=== PATIENT | male | born 1965 | race Two or more races ===

== ENCOUNTER 2020-07-20 09:39 | Inpatient (IN) | payer MEDICAID, OTHER ==
[~2020-07-20] VITALS: Ht 162.6 cm; Wt 88.2 kg
[2020-07-20] MEDS ORDERED: ACETAMINOPHEN 325 MG TAB PO ONE (10:15)
[2020-07-20] MEDS ORDERED: SODIUM CHLORIDE 0.9% 500 ML IV ONE (10:15)
[2020-07-20 10:34] LABS: Albumin 3.1 g/dL (3.4-5.0); Calcium 8.2 mg/dL (8.5-10.1); Potassium 3.2 mmol/L (3.5-5.1)
[2020-07-20 10:37] LABS: INR 1.26 (0.9-1.15)
[2020-07-20 10:40] LABS: BUN/Creatinine Ratio 9.9; Bilirubin, Total 0.9 mg/dL (0.2-1.0); Total Protein 8.3 g/dL (6.4-8.2)
[2020-07-20 10:45] LABS: Hematocrit 41.6 % (41.0-53.0); Hemoglobin 14.5 g/dL (13.5-17.5); Mean Corpuscular Hemoglobin 28.7 pg (28.0-32.0); Mean Corpuscular Hgb Conc. 34.9 g/dL (32.0-36.0); Mean Corpuscular Volume 82.4 fL (80.0-100.0); Platelet Count (auto) 163 10^3/uL (140-450); Red Blood Cells 5.04 10^6/uL (4.5-5.90); Red Cell Distribution Width 13.6 % (11.8-14.3); White Blood Cell 19.5 10^3/uL (4.4-10.8)
[2020-07-20 12:36] LABS: Band Neutrophils % (manual) 0; Basophils % (manual) 0 (0.0-2.0); Blast Cells 0; Eosinophils % (manual) 0 (0-7); Myelocytes % 0; Promyelocytes % 0; Reactive Lymphocytes 0
[2020-07-20 12:38] LABS: Lymphocytes % (manual) 7 (10.0-50.0); Metamyelocytes % 1; Monocytes % (manual) 3 (0-12)
[2020-07-20] MEDS ORDERED: ZINC SULFATE 220mg CAP or TAB PO ONE (12:45)
[2020-07-20] MEDS ORDERED: DexAMETHasone SOD PHOS 10MG/1ML VIAL INJ IV ONE (12:45)
[2020-07-20] MEDS ORDERED: SODIUM CHLORIDE 0.9% 1,000 ML IVB ONE (12:45)
[2020-07-20] MEDS ORDERED: ASPirin-EC 81 mg tab PO ONE (12:45)
[2020-07-20] MEDS ORDERED: ASCORBIC ACID 500 MG TAB PO ONE (12:45)
[2020-07-20] MEDS ORDERED: AZITHROMYCIN 500MG/ 250ML 250 ML IV ONE (12:45)
[2020-07-20] MEDS ORDERED: POTASSIUM CHL 20 Meq TABLET PO ONE (15:45)
[2020-07-20] MEDS ORDERED: ONDANSETRON HCL 4 MG/2 ML VIAL IV PRN (16:00)
[2020-07-20] MEDS ORDERED: NITROGLYCERIN 0.4 MG SL TAB SL PRN (16:00)
[2020-07-20] MEDS ORDERED: MORPHINE SULF INJ 2 MG/ML SYRINGE 1ML IV PRN (16:00)
[2020-07-20] MEDS: ENOXAPARIN SOD 80 MG/0.8ML SYRINGE SC SCH (22:16)
[2020-07-20] MEDS ORDERED: REMDESIVIR PER PHARMACY 0 ML IV SCH (23:00)
[2020-07-21 07:40] LABS: Basophils # (auto) 0 10 ^3/uL (0-0.2); Basophils % (auto) 0.2 % (0.0-2.0); Eosinophils # (auto) 0 10 ^3/uL (0-0.8); Hematocrit 37.9 % (41.0-53.0); Hemoglobin 12.8 g/dL (13.5-17.5); Lymphocytes # (auto) 1.3 10 ^3/uL (0.4-5.4); Mean Corpuscular Hemoglobin 28.3 pg (28.0-32.0); Mean Corpuscular Hgb Conc. 33.8 g/dL (32.0-36.0); Mean Corpuscular Volume 83.6 fL (80.0-100.0); Monocytes # (auto) 0.9 10 ^3/uL (0-1.3); Monocytes % (auto) 8.2 % (0.0-12.0); Neutrophils # (auto) 8.6 10 ^3/uL (1.6-8.6); Neutrophils % (auto) 79.6 % (37.0-80.0); Nucleated Red Blood Cells % 1.4 %; Platelet Count (auto) 182 10^3/uL (140-450); Red Blood Cells 4.53 10^6/uL (4.5-5.90); Red Cell Distribution Width 13.6 % (11.8-14.3); White Blood Cell 10.8 10^3/uL (4.4-10.8)
[2020-07-21 07:44] LABS: Albumin 2.7 g/dL (3.4-5.0); Calcium 8.5 mg/dL (8.5-10.1); Magnesium 2.4 mg/dL (1.6-2.6); Potassium 3.9 mmol/L (3.5-5.1)
[2020-07-21 07:53] LABS: BUN/Creatinine Ratio 23.6; Bilirubin, Total 0.6 mg/dL (0.2-1.0); Total Protein 7.6 g/dL (6.4-8.2)
[2020-07-21] MEDS: cefTRIAXone 1GM/50ML D5W 50 ML IV SCH (09:00)
[2020-07-21] MEDS ORDERED: ENOXAPARIN SOD 80 MG/0.8ML SYRINGE SC SCH (10:00)
[2020-07-21] MEDS: ASPirin 81 mg TAB PO SCH (10:37)
[2020-07-21] MEDS: AZITHROMYCIN 500MG/ 250ML 250 ML IV SCH (10:37)
[2020-07-21] MEDS: ENOXAPARIN SOD 80 MG/0.8ML SYRINGE SC SCH ×2 (10:38→23:01)
[2020-07-21] MEDS: ATORVASTATIN 20 MG TAB PO SCH (10:38)
[2020-07-21] MEDS: METHADONE HCL 10 MG TAB PO SCH (12:42)
[2020-07-21] MEDS ORDERED: REMDESIVIR 200 MG in NS 210ml LOADING DOSE ADULT IV ONE (16:00)
[2020-07-22 04:59] VITALS: BP 146/90
[2020-07-22 05:05] VITALS: BP 146/90
[2020-07-22] MEDS ORDERED: METF-370 PO (05:39)
[2020-07-22] MEDS ORDERED: METH10T PO (05:39)
[2020-07-22 07:33] LABS: Basophils # (auto) 0.1 10 ^3/uL (0-0.2); Basophils % (auto) 0.4 % (0.0-2.0); Eosinophils # (auto) 0 10 ^3/uL (0-0.8); Eosinophils % (auto) 0.3 % (0.0-7.0); Hematocrit 40.2 % (41.0-53.0); Hemoglobin 13.6 g/dL (13.5-17.5); Lymphocytes # (auto) 2.4 10 ^3/uL (0.4-5.4); Lymphocytes % (auto) 14.7 % (10.0-50.0); Mean Corpuscular Hemoglobin 28.3 pg (28.0-32.0); Mean Corpuscular Hgb Conc. 33.9 g/dL (32.0-36.0); Mean Corpuscular Volume 83.6 fL (80.0-100.0); Monocytes # (auto) 1.2 10 ^3/uL (0-1.3); Monocytes % (auto) 7.4 % (0.0-12.0); Neutrophils # (auto) 12.5 10 ^3/uL (1.6-8.6); Neutrophils % (auto) 77.2 % (37.0-80.0); Nucleated Red Blood Cells % 0.2 %; Platelet Count (auto) 224 10^3/uL (140-450); Red Blood Cells 4.81 10^6/uL (4.5-5.90); Red Cell Distribution Width 13.7 % (11.8-14.3); White Blood Cell 16.2 10^3/uL (4.4-10.8)
[2020-07-22 08:00] VITALS: BP 128/81
[2020-07-22 08:06] LABS: BUN/Creatinine Ratio 23.6; Calcium 8.8 mg/dL (8.5-10.1)
[2020-07-22] MEDS: cefTRIAXone 1GM/50ML D5W 50 ML IV SCH (08:20)
[2020-07-22] MEDS: ASPirin 81 mg TAB PO SCH (09:34)
[2020-07-22] MEDS: METHADONE HCL 10 MG TAB PO SCH (09:34)
[2020-07-22] MEDS: ENOXAPARIN SOD 80 MG/0.8ML SYRINGE SC SCH ×2 (09:34→22:17)
[2020-07-22] MEDS: ATORVASTATIN 20 MG TAB PO SCH (09:34)
[2020-07-22] MEDS: AZITHROMYCIN 500MG/ 250ML 250 ML IV SCH (09:35)
[2020-07-22] MEDS ORDERED: METHADONE HCL 10 MG TAB PO SCH (10:00)
[2020-07-22] MEDS: DexAMETHasone SOD PHOS 10MG/1ML VIAL INJ IV SCH (11:51)
[2020-07-22] MEDS: REMDESIVIR 100 MG in SODIUM CHL 0.9% 250 ML IV SCH (15:45)
[2020-07-22 16:08] VITALS: BP 138/95
[2020-07-23] VITALS: BP 116/74
[2020-07-23 05:59] LABS: Basophils # (auto) 0 10 ^3/uL (0-0.2); Basophils % (auto) 0.4 % (0.0-2.0); Eosinophils # (auto) 0 10 ^3/uL (0-0.8); Eosinophils % (auto) 0.1 % (0.0-7.0); Hemoglobin 13.6 g/dL (13.5-17.5); Lymphocytes # (auto) 1.2 10 ^3/uL (0.4-5.4); Lymphocytes % (auto) 11.5 % (10.0-50.0); Mean Corpuscular Hemoglobin 28.5 pg (28.0-32.0); Mean Corpuscular Hgb Conc. 34.1 g/dL (32.0-36.0); Mean Corpuscular Volume 83.6 fL (80.0-100.0); Monocytes # (auto) 0.8 10 ^3/uL (0-1.3); Monocytes % (auto) 7.6 % (0.0-12.0); Neutrophils # (auto) 8.4 10 ^3/uL (1.6-8.6); Neutrophils % (auto) 80.4 % (37.0-80.0); Nucleated Red Blood Cells % 0.2 %; Platelet Count (auto) 230 10^3/uL (140-450); Red Blood Cells 4.79 10^6/uL (4.5-5.90); Red Cell Distribution Width 13.9 % (11.8-14.3); White Blood Cell 10.5 10^3/uL (4.4-10.8)
[2020-07-23 06:19] LABS: Calcium 8.8 mg/dL (8.5-10.1); Magnesium 2.4 mg/dL (1.6-2.6); Potassium 4.1 mmol/L (3.5-5.1)
[2020-07-23 06:28] LABS: BUN/Creatinine Ratio 26.3; CRP High Sensitivity 8.8 mg/dL (< 0.3)
[2020-07-23 08:00] VITALS: BP 120/83
[2020-07-23] MEDS: cefTRIAXone 1GM/50ML D5W 50 ML IV SCH (08:52)
[2020-07-23] MEDS: AZITHROMYCIN 500MG/ 250ML 250 ML IV SCH (10:13)
[2020-07-23] MEDS: ENOXAPARIN SOD 80 MG/0.8ML SYRINGE SC SCH ×2 (10:14→22:05)
[2020-07-23] MEDS: ATORVASTATIN 20 MG TAB PO SCH (10:14)
[2020-07-23] MEDS: METHADONE HCL 10 MG TAB PO SCH (10:15)
[2020-07-23] MEDS: ASPirin 81 mg TAB PO SCH (10:16)
[2020-07-23] MEDS: DexAMETHasone SOD PHOS 10MG/1ML VIAL INJ IV SCH (10:16)
[2020-07-23] MEDS: REMDESIVIR 100 MG in SODIUM CHL 0.9% 250 ML IV SCH (15:00)
[2020-07-23] MEDS: MORPHINE SULF INJ 2 MG/ML SYRINGE 1ML IV PRN (15:54)
[2020-07-23] MEDS ORDERED: FUROSEMIDE 40 MG/4 ML VIAL IV ONE (16:15)
[2020-07-23 16:29] VITALS: BP 126/75
[2020-07-24] VITALS: BP 110/72
[2020-07-24 08:00] VITALS: BP 120/73
[2020-07-24] MEDS: cefTRIAXone 1GM/50ML D5W 50 ML IV SCH (09:24)
[2020-07-24] MEDS: DexAMETHasone SOD PHOS 10MG/1ML VIAL INJ IV SCH (09:47)
[2020-07-24] MEDS: ENOXAPARIN SOD 80 MG/0.8ML SYRINGE SC SCH ×2 (09:47→21:38)
[2020-07-24] MEDS: ATORVASTATIN 20 MG TAB PO SCH (09:47)
[2020-07-24] MEDS: ASPirin 81 mg TAB PO SCH (09:47)
[2020-07-24] MEDS: METHADONE HCL 10 MG TAB PO SCH (09:48)
[2020-07-24 10:06] LABS: Albumin 3.2 g/dL (3.4-5.0); Calcium 9.1 mg/dL (8.5-10.1); Potassium 3.9 mmol/L (3.5-5.1)
[2020-07-24] MEDS: AZITHROMYCIN 500MG/ 250ML 250 ML IV SCH (10:20)
[2020-07-24 10:33] LABS: BUN/Creatinine Ratio 22.2; Bilirubin, Total 0.6 mg/dL (0.2-1.0); Total Protein 8.7 g/dL (6.4-8.2)
[2020-07-24] MEDS: MORPHINE SULF INJ 2 MG/ML SYRINGE 1ML IV PRN (15:16)
[2020-07-24] MEDS: REMDESIVIR 100 MG in SODIUM CHL 0.9% 250 ML IV SCH (15:38)
[2020-07-24 16:00] VITALS: BP 122/83
[2020-07-24] MEDS ORDERED: diphenhdrAMINE HCL 25 MG CAP PO PRN (20:00)
[2020-07-25] VITALS: BP 137/78
[2020-07-25 08:00] VITALS: BP 132/86
[2020-07-25 08:05] LABS: Potassium 4.5 mmol/L (3.5-5.1)
[2020-07-25 08:13] LABS: Albumin 3.1 g/dL (3.4-5.0); BUN/Creatinine Ratio 27.3; Bilirubin, Total 0.6 mg/dL (0.2-1.0); Calcium 9.2 mg/dL (8.5-10.1); Total Protein 8.1 g/dL (6.4-8.2)
[2020-07-25] MEDS: cefTRIAXone 1GM/50ML D5W 50 ML IV SCH (08:45)
[2020-07-25] MEDS ORDERED: FUROSEMIDE 40 MG/4 ML VIAL IV ONE (09:00)
[2020-07-25] MEDS: DexAMETHasone SOD PHOS 10MG/1ML VIAL INJ IV SCH (09:27)
[2020-07-25] MEDS: ASPirin 81 mg TAB PO SCH (09:27)
[2020-07-25] MEDS: ATORVASTATIN 20 MG TAB PO SCH (09:27)
[2020-07-25] MEDS: AZITHROMYCIN 500MG/ 250ML 250 ML IV SCH (09:28)
[2020-07-25] MEDS: ENOXAPARIN SOD 80 MG/0.8ML SYRINGE SC SCH ×2 (09:28→21:37)
[2020-07-25] MEDS: METHADONE HCL 10 MG TAB PO SCH (09:31)
[2020-07-25] MEDS: REMDESIVIR 100 MG in SODIUM CHL 0.9% 250 ML IV SCH (15:23)
[2020-07-25 16:00] VITALS: BP 118/70
[2020-07-25] MEDS: MORPHINE SULF INJ 2 MG/ML SYRINGE 1ML IV PRN (21:47)
[2020-07-26] VITALS: BP 122/75
[2020-07-26 07:47] VITALS: BP 135/85
[2020-07-26] MEDS: DexAMETHasone SOD PHOS 10MG/1ML VIAL INJ IV SCH (10:51)
[2020-07-26] MEDS: cefTRIAXone 1GM/50ML D5W 50 ML IV SCH (10:51)
[2020-07-26] MEDS: ATORVASTATIN 20 MG TAB PO SCH (10:52)
[2020-07-26] MEDS: ASPirin 81 mg TAB PO SCH (10:52)
[2020-07-26] MEDS: ENOXAPARIN SOD 80 MG/0.8ML SYRINGE SC SCH ×2 (10:54→21:52)
[2020-07-26] MEDS: METHADONE HCL 10 MG TAB PO SCH (10:54)
[2020-07-26 11:04] LABS: Basophils # (auto) 0 10 ^3/uL (0-0.2); Basophils % (auto) 0.2 % (0.0-2.0); Eosinophils # (auto) 0.1 10 ^3/uL (0-0.8); Eosinophils % (auto) 0.5 % (0.0-7.0); Hematocrit 45.8 % (41.0-53.0); Hemoglobin 15.7 g/dL (13.5-17.5); Lymphocytes # (auto) 2.7 10 ^3/uL (0.4-5.4); Lymphocytes % (auto) 16.9 % (10.0-50.0); Mean Corpuscular Hemoglobin 28.9 pg (28.0-32.0); Mean Corpuscular Hgb Conc. 34.3 g/dL (32.0-36.0); Mean Corpuscular Volume 84.2 fL (80.0-100.0); Monocytes # (auto) 1.9 10 ^3/uL (0-1.3); Monocytes % (auto) 11.5 % (0.0-12.0); Neutrophils # (auto) 11.4 10 ^3/uL (1.6-8.6); Neutrophils % (auto) 70.9 % (37.0-80.0); Nucleated Red Blood Cells % 0.1 %; Platelet Count (auto) 434 10^3/uL (140-450); Red Blood Cells 5.44 10^6/uL (4.5-5.90); Red Cell Distribution Width 14.2 % (11.8-14.3); White Blood Cell 16.2 10^3/uL (4.4-10.8)
[2020-07-26 11:11] LABS: Calcium 9.2 mg/dL (8.5-10.1); Magnesium 2.1 mg/dL (1.6-2.6); Potassium 4.2 mmol/L (3.5-5.1)
[2020-07-26] MEDS: AZITHROMYCIN 500MG/ 250ML 250 ML IV SCH (11:58)
[2020-07-26 15:22] LABS: Basophils # (auto) 0 10 ^3/uL (0-0.2); Eosinophils # (auto) 0 10 ^3/uL (0-0.8); Eosinophils % (auto) 0.1 % (0.0-7.0); Hematocrit 42.3 % (41.0-53.0); Hemoglobin 14.3 g/dL (13.5-17.5); Lymphocytes % (auto) 5.6 % (10.0-50.0); Mean Corpuscular Hemoglobin 28.2 pg (28.0-32.0); Mean Corpuscular Hgb Conc. 33.9 g/dL (32.0-36.0); Mean Corpuscular Volume 83.4 fL (80.0-100.0); Monocytes # (auto) 0.6 10 ^3/uL (0-1.3); Monocytes % (auto) 3.6 % (0.0-12.0); Neutrophils # (auto) 16.5 10 ^3/uL (1.6-8.6); Neutrophils % (auto) 90.7 % (37.0-80.0); Platelet Count (auto) 374 10^3/uL (140-450); Red Blood Cells 5.07 10^6/uL (4.5-5.90); Red Cell Distribution Width 13.8 % (11.8-14.3); White Blood Cell 18.2 10^3/uL (4.4-10.8)
[2020-07-26 16:00] VITALS: BP 136/93
[2020-07-26 16:59] LABS: Potassium 5.1 mmol/L (3.5-5.1)
[2020-07-26 17:07] LABS: BUN/Creatinine Ratio 22.7; Calcium 8.9 mg/dL (8.5-10.1); Magnesium 2.1 mg/dL (1.6-2.6)
[2020-07-26] MEDS ORDERED: INSULIN LANTUS (GLARGINE) 1 /0.01ml (100units/ml) SC ONE (17:45)
[2020-07-26] MEDS: MORPHINE SULF INJ 2 MG/ML SYRINGE 1ML IV PRN (20:31)
[2020-07-27] VITALS: BP 118/81
[2020-07-27 08:00] VITALS: BP 107/74
[2020-07-27] MEDS: DexAMETHasone SOD PHOS 10MG/1ML VIAL INJ IV SCH (09:43)
[2020-07-27] MEDS: cefTRIAXone 1GM/50ML D5W 50 ML IV SCH (09:43)
[2020-07-27] MEDS: FUROSEMIDE 20 MG/2 ML VIAL IV SCH (09:43)
[2020-07-27] MEDS: ATORVASTATIN 20 MG TAB PO SCH (09:45)
[2020-07-27] MEDS: METHADONE HCL 10 MG TAB PO SCH (09:45)
[2020-07-27] MEDS: ASPirin 81 mg TAB PO SCH (09:45)
[2020-07-27] MEDS ORDERED: INSULIN LANTUS (GLARGINE) 1 /0.01ml (100units/ml) SC SCH (10:00)
[2020-07-27] MEDS: ENOXAPARIN SOD 80 MG/0.8ML SYRINGE SC SCH ×2 (11:05→22:11)
[2020-07-27] MEDS: AZITHROMYCIN 500MG/ 250ML 250 ML IV SCH (11:05)
[2020-07-27] MEDS ORDERED: DEXTROSE (50%) 50ML SYRG IV PRN (11:15)
[2020-07-27] MEDS: InsuLIN REG 1unit/0.01ml Soln (100units/ml) SC SCH ×3 (13:14→22:13)
[2020-07-27] MEDS: ACCU-CHEK COMFORT CURVE STRIP VI SCH ×3 (13:15→22:12)
[2020-07-27 16:00] VITALS: BP_SYST 113; BP_SYST 118; BP_DIAS 63; BP_DIAS 75
[2020-07-27] MEDS ORDERED: ONDANSETRON HCL 4 MG/2 ML VIAL IV PRN (18:00)
[2020-07-27] MEDS ORDERED: MORPHINE SULF INJ 2 MG/ML SYRINGE 1ML IV PRN (18:00)
[2020-07-27 19:24] LABS: Calcium 8.7 mg/dL (8.5-10.1); Potassium 4.5 mmol/L (3.5-5.1)
[2020-07-27] MEDS: INSULIN LANTUS (GLARGINE) 1 /0.01ml (100units/ml) SC SCH (22:12)
[2020-07-27] MEDS: HYDROcodone-ACET 5/325MG TAB PO PRN (22:13)
[2020-07-28] VITALS: BP 129/75
[2020-07-28] MEDS: ACCU-CHEK COMFORT CURVE STRIP VI SCH ×4 (06:42→22:21)
[2020-07-28] MEDS: InsuLIN REG 1unit/0.01ml Soln (100units/ml) SC SCH ×4 (06:44→22:22)
[2020-07-28 08:00] VITALS: BP 113/79
[2020-07-28 08:56] LABS: Basophils # (auto) 0 10 ^3/uL (0-0.2); Basophils % (auto) 0.3 % (0.0-2.0); Eosinophils # (auto) 0 10 ^3/uL (0-0.8); Eosinophils % (auto) 0.3 % (0.0-7.0); Hematocrit 42.1 % (41.0-53.0); Hemoglobin 14.5 g/dL (13.5-17.5); Lymphocytes # (auto) 2.4 10 ^3/uL (0.4-5.4); Lymphocytes % (auto) 18.3 % (10.0-50.0); Mean Corpuscular Hemoglobin 28.8 pg (28.0-32.0); Mean Corpuscular Hgb Conc. 34.5 g/dL (32.0-36.0); Mean Corpuscular Volume 83.4 fL (80.0-100.0); Monocytes # (auto) 1.7 10 ^3/uL (0-1.3); Neutrophils # (auto) 8.9 10 ^3/uL (1.6-8.6); Neutrophils % (auto) 68.1 % (37.0-80.0); Nucleated Red Blood Cells % 0.1 %; Platelet Count (auto) 427 10^3/uL (140-450); Red Blood Cells 5.05 10^6/uL (4.5-5.90); Red Cell Distribution Width 13.9 % (11.8-14.3); White Blood Cell 13.1 10^3/uL (4.4-10.8)
[2020-07-28 09:13] LABS: Magnesium 2.2 mg/dL (1.6-2.6)
[2020-07-28] MEDS: FUROSEMIDE 20 MG/2 ML VIAL IV SCH (09:33)
[2020-07-28] MEDS: ASPirin 81 mg TAB PO SCH (09:33)
[2020-07-28] MEDS: DexAMETHasone SOD PHOS 10MG/1ML VIAL INJ IV SCH (09:33)
[2020-07-28] MEDS: cefTRIAXone 1GM/50ML D5W 50 ML IV SCH (09:33)
[2020-07-28] MEDS: ATORVASTATIN 20 MG TAB PO SCH (09:34)
[2020-07-28] MEDS: METHADONE HCL 10 MG TAB PO SCH (09:34)
[2020-07-28] MEDS: ENOXAPARIN SOD 80 MG/0.8ML SYRINGE SC SCH ×2 (09:50→22:21)
[2020-07-28] MEDS: AZITHROMYCIN 500MG/ 250ML 250 ML IV SCH (10:49)
[2020-07-28] MEDS: INSULIN LANTUS (GLARGINE) 1 /0.01ml (100units/ml) SC SCH ×2 (10:49→22:21)
[2020-07-28 16:12] VITALS: BP 106/74
[2020-07-28] MEDS: HYDROcodone-ACET 5/325MG TAB PO PRN (20:14)
[2020-07-28 23:49] VITALS: BP 130/69
[2020-07-29 05:46] VITALS: BP 117/70
[2020-07-29] MEDS: InsuLIN REG 1unit/0.01ml Soln (100units/ml) SC SCH ×4 (06:38→21:58)
[2020-07-29] MEDS: ACCU-CHEK COMFORT CURVE STRIP VI SCH ×4 (06:38→21:55)
[2020-07-29 08:00] VITALS: BP 130/83
[2020-07-29] MEDS: cefTRIAXone 1GM/50ML D5W 50 ML IV SCH (09:27)
[2020-07-29] MEDS: DexAMETHasone SOD PHOS 10MG/1ML VIAL INJ IV SCH (09:27)
[2020-07-29] MEDS: METHADONE HCL 10 MG TAB PO SCH (09:28)
[2020-07-29] MEDS: ASPirin 81 mg TAB PO SCH (09:28)
[2020-07-29] MEDS: FUROSEMIDE 20 MG/2 ML VIAL IV SCH (09:28)
[2020-07-29] MEDS: ENOXAPARIN SOD 80 MG/0.8ML SYRINGE SC SCH ×2 (09:28→21:55)
[2020-07-29] MEDS: ATORVASTATIN 20 MG TAB PO SCH (09:28)
[2020-07-29] MEDS: INSULIN LANTUS (GLARGINE) 1 /0.01ml (100units/ml) SC SCH ×2 (09:50→21:57)
[2020-07-29] MEDS: AZITHROMYCIN 500MG/ 250ML 250 ML IV SCH (10:30)
[2020-07-29 15:36] VITALS: BP 107/81
[2020-07-29] MEDS: HYDROcodone-ACET 5/325MG TAB PO PRN (20:31)
[2020-07-29 23:19] VITALS: BP 110/77
[2020-07-30] VITALS: BP 110/77
[2020-07-30 05:45] VITALS: BP 124/76
[2020-07-30] MEDS: ACCU-CHEK COMFORT CURVE STRIP VI SCH ×4 (06:30→22:18)
[2020-07-30] MEDS: InsuLIN REG 1unit/0.01ml Soln (100units/ml) SC SCH ×4 (06:31→22:20)
[2020-07-30 08:00] VITALS: BP 120/82
[2020-07-30] MEDS: FUROSEMIDE 20 MG/2 ML VIAL IV SCH (10:00)
[2020-07-30] MEDS: AZITHROMYCIN 500MG/ 250ML 250 ML IV SCH (10:16)
[2020-07-30] MEDS: cefTRIAXone 1GM/50ML D5W 50 ML IV SCH (10:16)
[2020-07-30] MEDS: ENOXAPARIN SOD 80 MG/0.8ML SYRINGE SC SCH ×2 (10:17→22:19)
[2020-07-30] MEDS: ASPirin 81 mg TAB PO SCH (10:17)
[2020-07-30] MEDS: DexAMETHasone SOD PHOS 10MG/1ML VIAL INJ IV SCH (10:17)
[2020-07-30] MEDS: METHADONE HCL 10 MG TAB PO SCH (10:17)
[2020-07-30] MEDS: ATORVASTATIN 20 MG TAB PO SCH (10:17)
[2020-07-30] MEDS: INSULIN LANTUS (GLARGINE) 1 /0.01ml (100units/ml) SC SCH ×2 (10:19→22:20)
[2020-07-30 17:44] VITALS: BP 118/80
[2020-07-30] MEDS: HYDROcodone-ACET 5/325MG TAB PO PRN (20:55)
[2020-07-31] VITALS: BP 141/89
[2020-07-31] MEDS: ACCU-CHEK COMFORT CURVE STRIP VI SCH ×4 (06:37→22:01)
[2020-07-31] MEDS: InsuLIN REG 1unit/0.01ml Soln (100units/ml) SC SCH ×4 (06:40→22:10)
[2020-07-31 08:00] VITALS: BP 102/67
[2020-07-31 08:00] LABS: Potassium 3.7 mmol/L (3.5-5.1)
[2020-07-31 08:04] LABS: Basophils # (auto) 0.1 10 ^3/uL (0-0.2); Basophils % (auto) 0.7 % (0.0-2.0); Calcium 8.8 mg/dL (8.5-10.1); Eosinophils # (auto) 0 10 ^3/uL (0-0.8); Eosinophils % (auto) 0.3 % (0.0-7.0); Hematocrit 42.6 % (41.0-53.0); Hemoglobin 14.2 g/dL (13.5-17.5); Lymphocytes # (auto) 2.8 10 ^3/uL (0.4-5.4); Lymphocytes % (auto) 19.9 % (10.0-50.0); Magnesium 2.2 mg/dL (1.6-2.6); Mean Corpuscular Hgb Conc. 33.5 g/dL (32.0-36.0); Mean Corpuscular Volume 83.6 fL (80.0-100.0); Monocytes # (auto) 1.7 10 ^3/uL (0-1.3); Monocytes % (auto) 12.2 % (0.0-12.0); Neutrophils # (auto) 9.4 10 ^3/uL (1.6-8.6); Neutrophils % (auto) 66.9 % (37.0-80.0); Nucleated Red Blood Cells % 0.3 %; Platelet Count (auto) 369 10^3/uL (140-450); Red Blood Cells 5.09 10^6/uL (4.5-5.90)
[2020-07-31] MEDS: DexAMETHasone SOD PHOS 10MG/1ML VIAL INJ IV SCH (09:57)
[2020-07-31] MEDS: cefTRIAXone 1GM/50ML D5W 50 ML IV SCH (09:57)
[2020-07-31] MEDS: FUROSEMIDE 20 MG/2 ML VIAL IV SCH (09:58)
[2020-07-31] MEDS: ASPirin 81 mg TAB PO SCH (09:58)
[2020-07-31] MEDS: ATORVASTATIN 20 MG TAB PO SCH (09:58)
[2020-07-31] MEDS: METHADONE HCL 10 MG TAB PO SCH (09:59)
[2020-07-31] MEDS: ENOXAPARIN SOD 80 MG/0.8ML SYRINGE SC SCH ×2 (10:00→22:08)
[2020-07-31] MEDS: INSULIN LANTUS (GLARGINE) 1 /0.01ml (100units/ml) SC SCH ×2 (10:38→22:09)
[2020-07-31] MEDS: AZITHROMYCIN 500MG/ 250ML 250 ML IV SCH (11:25)
[2020-07-31 16:00] VITALS: BP 111/79
[2020-07-31] MEDS: HYDROcodone-ACET 5/325MG TAB PO PRN (20:17)
[2020-08-01] VITALS: BP 137/82
[2020-08-01] MEDS: InsuLIN REG 1unit/0.01ml Soln (100units/ml) SC SCH ×4 (05:35→21:27)
[2020-08-01] MEDS: ACCU-CHEK COMFORT CURVE STRIP VI SCH ×4 (05:35→21:25)
[2020-08-01 08:00] VITALS: BP 97/66
[2020-08-01] MEDS: cefTRIAXone 1GM/50ML D5W 50 ML IV SCH (10:18)
[2020-08-01] MEDS: DexAMETHasone SOD PHOS 10MG/1ML VIAL INJ IV SCH (10:18)
[2020-08-01] MEDS: FUROSEMIDE 20 MG/2 ML VIAL IV SCH (10:19)
[2020-08-01] MEDS: ASPirin 81 mg TAB PO SCH (10:19)
[2020-08-01] MEDS: METHADONE HCL 10 MG TAB PO SCH (10:19)
[2020-08-01] MEDS: ATORVASTATIN 20 MG TAB PO SCH (10:19)
[2020-08-01] MEDS: AZITHROMYCIN 500MG/ 250ML 250 ML IV SCH (10:19)
[2020-08-01] MEDS: INSULIN LANTUS (GLARGINE) 1 /0.01ml (100units/ml) SC SCH ×2 (10:49→21:26)
[2020-08-01 16:00] VITALS: BP 113/65
[2020-08-01] MEDS: HYDROcodone-ACET 5/325MG TAB PO PRN (21:30)
[2020-08-02] VITALS: BP 128/87
[2020-08-02] MEDS: ACCU-CHEK COMFORT CURVE STRIP VI SCH ×4 (06:28→22:00)
[2020-08-02] MEDS: InsuLIN REG 1unit/0.01ml Soln (100units/ml) SC SCH ×4 (06:35→22:38)
[2020-08-02 08:00] VITALS: BP 134/85
[2020-08-02] MEDS: FUROSEMIDE 20 MG/2 ML VIAL IV SCH (09:50)
[2020-08-02] MEDS: DexAMETHasone SOD PHOS 10MG/1ML VIAL INJ IV SCH (09:50)
[2020-08-02] MEDS: ASPirin 81 mg TAB PO SCH (09:51)
[2020-08-02] MEDS: ATORVASTATIN 20 MG TAB PO SCH (09:51)
[2020-08-02] MEDS: INSULIN LANTUS (GLARGINE) 1 /0.01ml (100units/ml) SC SCH ×2 (10:06→22:39)
[2020-08-02] MEDS: METHADONE HCL 10 MG TAB PO SCH (11:34)
[2020-08-02 14:50] LABS: Potassium 4.3 mmol/L (3.5-5.1)
[2020-08-02 14:55] LABS: Calcium 9.5 mg/dL (8.5-10.1)
[2020-08-02 15:56] VITALS: BP 118/79
[2020-08-02] MEDS: HYDROcodone-ACET 5/325MG TAB PO PRN (20:29)
[2020-08-03] VITALS: BP 153/77
[2020-08-03] MEDS: ACCU-CHEK COMFORT CURVE STRIP VI SCH ×4 (06:26→21:37)
[2020-08-03] MEDS: InsuLIN REG 1unit/0.01ml Soln (100units/ml) SC SCH ×4 (06:30→21:24)
[2020-08-03 06:31] LABS: Basophils # (auto) 0.1 10 ^3/uL (0-0.2); Basophils % (auto) 0.7 % (0.0-2.0); Eosinophils # (auto) 0.1 10 ^3/uL (0-0.8); Eosinophils % (auto) 0.3 % (0.0-7.0); Hematocrit 41.3 % (41.0-53.0); Hemoglobin 14.1 g/dL (13.5-17.5); Lymphocytes # (auto) 3.5 10 ^3/uL (0.4-5.4); Lymphocytes % (auto) 16.2 % (10.0-50.0); Mean Corpuscular Hemoglobin 28.6 pg (28.0-32.0); Mean Corpuscular Hgb Conc. 34.1 g/dL (32.0-36.0); Mean Corpuscular Volume 83.8 fL (80.0-100.0); Monocytes # (auto) 1.7 10 ^3/uL (0-1.3); Monocytes % (auto) 7.9 % (0.0-12.0); Neutrophils # (auto) 16.4 10 ^3/uL (1.6-8.6); Neutrophils % (auto) 74.9 % (37.0-80.0); Nucleated Red Blood Cells % 0.1 %; Platelet Count (auto) 307 10^3/uL (140-450); Red Blood Cells 4.92 10^6/uL (4.5-5.90); Red Cell Distribution Width 14.2 % (11.8-14.3); White Blood Cell 21.9 10^3/uL (4.4-10.8)
[2020-08-03 06:43] LABS: Potassium 4.3 mmol/L (3.5-5.1)
[2020-08-03 06:47] LABS: BUN/Creatinine Ratio 27.4; CRP High Sensitivity 0.09 mg/dL (< 0.3); Calcium 8.8 mg/dL (8.5-10.1)
[2020-08-03 08:05] VITALS: BP 134/77
[2020-08-03] MEDS: DexAMETHasone SOD PHOS 10MG/1ML VIAL INJ IV SCH (09:20)
[2020-08-03] MEDS: METHADONE HCL 10 MG TAB PO SCH (09:21)
[2020-08-03] MEDS: ATORVASTATIN 20 MG TAB PO SCH (09:21)
[2020-08-03] MEDS: ASPirin 81 mg TAB PO SCH (09:21)
[2020-08-03] MEDS: FUROSEMIDE 20 MG/2 ML VIAL IV SCH (09:21)
[2020-08-03] MEDS: INSULIN LANTUS (GLARGINE) 1 /0.01ml (100units/ml) SC SCH ×2 (09:38→21:35)
[2020-08-03 16:00] VITALS: BP 120/72
[2020-08-04] VITALS: BP 125/82
[2020-08-04] MEDS: ACCU-CHEK COMFORT CURVE STRIP VI SCH ×4 (06:18→22:00)
[2020-08-04] MEDS: InsuLIN REG 1unit/0.01ml Soln (100units/ml) SC SCH ×4 (06:22→22:00)
[2020-08-04 08:00] VITALS: BP 114/82
[2020-08-04] MEDS: ASPirin 81 mg TAB PO SCH (08:40)
[2020-08-04] MEDS: ATORVASTATIN 20 MG TAB PO SCH (08:40)
[2020-08-04] MEDS: METHADONE HCL 10 MG TAB PO SCH (08:41)
[2020-08-04] MEDS: INSULIN LANTUS (GLARGINE) 1 /0.01ml (100units/ml) SC SCH ×2 (08:42→22:00)
[2020-08-04] MEDS ORDERED: FUROSEMIDE 20 MG/2 ML VIAL IV SCH (10:00)
[2020-08-04 16:00] VITALS: BP 149/72
[2020-08-04 16:06] LABS: Potassium 4.1 mmol/L (3.5-5.1)
[2020-08-04 16:08] LABS: BUN/Creatinine Ratio 22.6
[2020-08-05] VITALS: BP 127/80
[2020-08-05] MEDS: InsuLIN REG 1unit/0.01ml Soln (100units/ml) SC SCH ×4 (06:58→21:40)
[2020-08-05] MEDS: ACCU-CHEK COMFORT CURVE STRIP VI SCH ×4 (06:58→21:41)
[2020-08-05 07:16] LABS: Basophils # (auto) 0.2 10 ^3/uL (0-0.2); Eosinophils # (auto) 0.5 10 ^3/uL (0-0.8); Eosinophils % (auto) 2.2 % (0.0-7.0); Hematocrit 45.2 % (41.0-53.0); Hemoglobin 14.6 g/dL (13.5-17.5); Lymphocytes # (auto) 6.6 10 ^3/uL (0.4-5.4); Lymphocytes % (auto) 29.9 % (10.0-50.0); Mean Corpuscular Hemoglobin 27.6 pg (28.0-32.0); Mean Corpuscular Hgb Conc. 32.3 g/dL (32.0-36.0); Mean Corpuscular Volume 85.4 fL (80.0-100.0); Monocytes # (auto) 2.1 10 ^3/uL (0-1.3); Monocytes % (auto) 9.8 % (0.0-12.0); Neutrophils # (auto) 12.6 10 ^3/uL (1.6-8.6); Neutrophils % (auto) 57.1 % (37.0-80.0); Nucleated Red Blood Cells % 0.1 %; Platelet Count (auto) 264 10^3/uL (140-450); Red Blood Cells 5.29 10^6/uL (4.5-5.90); Red Cell Distribution Width 14.3 % (11.8-14.3)
[2020-08-05 07:42] LABS: BUN/Creatinine Ratio 27.3; Calcium 8.7 mg/dL (8.5-10.1); Magnesium 2.2 mg/dL (1.6-2.6); Potassium 4.3 mmol/L (3.5-5.1)
[2020-08-05 08:00] VITALS: BP 101/54
[2020-08-05] MEDS: ATORVASTATIN 20 MG TAB PO SCH (08:54)
[2020-08-05] MEDS: ASPirin 81 mg TAB PO SCH (08:54)
[2020-08-05] MEDS: METHADONE HCL 10 MG TAB PO SCH (08:54)
[2020-08-05] MEDS: INSULIN LANTUS (GLARGINE) 1 /0.01ml (100units/ml) SC SCH ×2 (08:55→21:40)
[2020-08-05] MEDS: FUROSEMIDE 40 MG/4 ML VIAL IV SCH (11:51)
[2020-08-05 16:00] VITALS: BP 100/49
[2020-08-06] VITALS: BP 129/76
[2020-08-06] MEDS: InsuLIN REG 1unit/0.01ml Soln (100units/ml) SC SCH ×4 (06:09→22:09)
[2020-08-06] MEDS: ACCU-CHEK COMFORT CURVE STRIP VI SCH ×4 (06:09→22:14)
[2020-08-06 08:00] VITALS: BP 131/88
[2020-08-06] MEDS: FUROSEMIDE 40 MG/4 ML VIAL IV SCH (11:04)
[2020-08-06] MEDS: ASPirin 81 mg TAB PO SCH (11:04)
[2020-08-06] MEDS: ATORVASTATIN 20 MG TAB PO SCH (11:05)
[2020-08-06] MEDS: METHADONE HCL 10 MG TAB PO SCH (11:05)
[2020-08-06] MEDS: INSULIN LANTUS (GLARGINE) 1 /0.01ml (100units/ml) SC SCH ×2 (11:11→22:11)
[2020-08-06 16:00] VITALS: BP 122/81
[2020-08-06] MEDS: HYDROcodone-ACET 5/325MG TAB PO PRN (20:12)
[2020-08-07] VITALS: BP 126/74
[2020-08-07] MEDS: ACCU-CHEK COMFORT CURVE STRIP VI SCH ×4 (06:10→21:21)
[2020-08-07] MEDS: InsuLIN REG 1unit/0.01ml Soln (100units/ml) SC SCH ×4 (06:11→21:21)
[2020-08-07 06:19] LABS: Basophils # (auto) 0.1 10 ^3/uL (0-0.2); Basophils % (auto) 0.8 % (0.0-2.0); Eosinophils # (auto) 0.8 10 ^3/uL (0-0.8); Hematocrit 42.7 % (41.0-53.0); Hemoglobin 14.2 g/dL (13.5-17.5); Lymphocytes # (auto) 3.9 10 ^3/uL (0.4-5.4); Lymphocytes % (auto) 23.4 % (10.0-50.0); Mean Corpuscular Hemoglobin 28.4 pg (28.0-32.0); Mean Corpuscular Hgb Conc. 33.3 g/dL (32.0-36.0); Mean Corpuscular Volume 85.3 fL (80.0-100.0); Monocytes # (auto) 1.5 10 ^3/uL (0-1.3); Monocytes % (auto) 9.3 % (0.0-12.0); Neutrophils # (auto) 10.2 10 ^3/uL (1.6-8.6); Neutrophils % (auto) 61.5 % (37.0-80.0); Nucleated Red Blood Cells % 0.1 %; Platelet Count (auto) 183 10^3/uL (140-450); Red Blood Cells 5.01 10^6/uL (4.5-5.90); Red Cell Distribution Width 14.7 % (11.8-14.3); White Blood Cell 16.6 10^3/uL (4.4-10.8)
[2020-08-07 06:47] LABS: BUN/Creatinine Ratio 21.7; Calcium 8.4 mg/dL (8.5-10.1); Magnesium 2.5 mg/dL (1.6-2.6)
[2020-08-07 08:00] VITALS: BP 107/53
[2020-08-07] MEDS: ASPirin 81 mg TAB PO SCH (10:32)
[2020-08-07] MEDS: ATORVASTATIN 20 MG TAB PO SCH (10:33)
[2020-08-07] MEDS: METHADONE HCL 10 MG TAB PO SCH (10:33)
[2020-08-07] MEDS: FUROSEMIDE 40 MG/4 ML VIAL IV SCH (10:43)
[2020-08-07] MEDS: INSULIN LANTUS (GLARGINE) 1 /0.01ml (100units/ml) SC SCH ×2 (10:52→21:22)
[2020-08-07 16:00] VITALS: BP 116/75
[2020-08-07] MEDS: HYDROcodone-ACET 5/325MG TAB PO PRN (21:24)
[2020-08-08] VITALS: BP 109/79
[2020-08-08] MEDS: ACCU-CHEK COMFORT CURVE STRIP VI SCH ×4 (06:05→21:35)
[2020-08-08] MEDS: InsuLIN REG 1unit/0.01ml Soln (100units/ml) SC SCH ×4 (06:05→21:33)
[2020-08-08 08:00] VITALS: BP 128/74
[2020-08-08] MEDS: ASPirin 81 mg TAB PO SCH (09:57)
[2020-08-08] MEDS: ATORVASTATIN 20 MG TAB PO SCH (09:58)
[2020-08-08] MEDS: METHADONE HCL 10 MG TAB PO SCH (09:58)
[2020-08-08] MEDS: FUROSEMIDE 40 MG/4 ML VIAL IV SCH (09:59)
[2020-08-08] MEDS: INSULIN LANTUS (GLARGINE) 1 /0.01ml (100units/ml) SC SCH ×2 (10:09→21:35)
[2020-08-08 16:00] VITALS: BP 100/72
[2020-08-08] MEDS: ACETAMINOPHEN 325 MG TAB PO PRN (21:36)
[2020-08-09] VITALS: BP 127/97
[2020-08-09] MEDS: InsuLIN REG 1unit/0.01ml Soln (100units/ml) SC SCH ×4 (06:07→22:00)
[2020-08-09] MEDS: ACCU-CHEK COMFORT CURVE STRIP VI SCH ×4 (06:07→22:00)
[2020-08-09 07:02] LABS: BUN/Creatinine Ratio 18.1; Calcium 8.2 mg/dL (8.5-10.1); Magnesium 2.2 mg/dL (1.6-2.6); Potassium 3.6 mmol/L (3.5-5.1)
[2020-08-09 07:10] LABS: Basophils # (auto) 0.1 10 ^3/uL (0-0.2); Basophils % (auto) 0.5 % (0.0-2.0); Eosinophils # (auto) 0.8 10 ^3/uL (0-0.8); Eosinophils % (auto) 5.5 % (0.0-7.0); Hematocrit 41.2 % (41.0-53.0); Hemoglobin 13.8 g/dL (13.5-17.5); Lymphocytes # (auto) 2.1 10 ^3/uL (0.4-5.4); Lymphocytes % (auto) 14.7 % (10.0-50.0); Mean Corpuscular Hemoglobin 28.4 pg (28.0-32.0); Mean Corpuscular Hgb Conc. 33.4 g/dL (32.0-36.0); Mean Corpuscular Volume 84.9 fL (80.0-100.0); Monocytes # (auto) 1.2 10 ^3/uL (0-1.3); Monocytes % (auto) 8.5 % (0.0-12.0); Neutrophils # (auto) 10.1 10 ^3/uL (1.6-8.6); Neutrophils % (auto) 70.8 % (37.0-80.0); Nucleated Red Blood Cells % 0.1 %; Platelet Count (auto) 162 10^3/uL (140-450); Red Blood Cells 4.85 10^6/uL (4.5-5.90); Red Cell Distribution Width 14.4 % (11.8-14.3); White Blood Cell 14.3 10^3/uL (4.4-10.8)
[2020-08-09 07:56] VITALS: BP 116/69
[2020-08-09] MEDS: ATORVASTATIN 20 MG TAB PO SCH (09:39)
[2020-08-09] MEDS: ASPirin 81 mg TAB PO SCH (09:39)
[2020-08-09] MEDS: METHADONE HCL 10 MG TAB PO SCH (09:40)
[2020-08-09] MEDS: FUROSEMIDE 40 MG/4 ML VIAL IV SCH (09:41)
[2020-08-09] MEDS: INSULIN LANTUS (GLARGINE) 1 /0.01ml (100units/ml) SC SCH ×2 (09:52→22:00)
[2020-08-09 15:52] VITALS: BP 129/85
[2020-08-09] MEDS: ACETAMINOPHEN 325 MG TAB PO PRN (22:55)
[2020-08-10] VITALS: BP 115/77
[2020-08-10] MEDS: ACCU-CHEK COMFORT CURVE STRIP VI SCH ×4 (05:48→21:45)
[2020-08-10] MEDS: InsuLIN REG 1unit/0.01ml Soln (100units/ml) SC SCH ×4 (05:48→21:46)
[2020-08-10 07:47] LABS: CRP High Sensitivity 2.2 mg/dL (< 0.3)
[2020-08-10 08:00] VITALS: BP 128/89
[2020-08-10] MEDS: FUROSEMIDE 40 MG/4 ML VIAL IV SCH (09:51)
[2020-08-10] MEDS: ASPirin 81 mg TAB PO SCH (09:51)
[2020-08-10] MEDS: METHADONE HCL 10 MG TAB PO SCH (09:52)
[2020-08-10] MEDS: INSULIN LANTUS (GLARGINE) 1 /0.01ml (100units/ml) SC SCH ×2 (10:00→21:46)
[2020-08-10 10:03] LABS: Calcium 8.2 mg/dL (8.5-10.1); Potassium 3.5 mmol/L (3.5-5.1)
[2020-08-10] MEDS: ATORVASTATIN 20 MG TAB PO SCH (13:01)
[2020-08-10 16:00] VITALS: BP 121/74
[2020-08-10] MEDS: ENOXAPARIN SOD 40 MG/0.4 ML SYRINGE SC SCH (21:45)
[2020-08-10] MEDS: ACETAMINOPHEN 325 MG TAB PO PRN (21:51)
[2020-08-11] VITALS: BP 111/76
[2020-08-11 06:04] LABS: Basophils # (auto) 0.1 10 ^3/uL (0-0.2); Basophils % (auto) 1.2 % (0.0-2.0); Eosinophils # (auto) 0.7 10 ^3/uL (0-0.8); Hemoglobin 13.8 g/dL (13.5-17.5); Lymphocytes # (auto) 2.2 10 ^3/uL (0.4-5.4); Lymphocytes % (auto) 21.5 % (10.0-50.0); Mean Corpuscular Hemoglobin 29.1 pg (28.0-32.0); Mean Corpuscular Hgb Conc. 34.4 g/dL (32.0-36.0); Mean Corpuscular Volume 84.5 fL (80.0-100.0); Monocytes # (auto) 1.3 10 ^3/uL (0-1.3); Monocytes % (auto) 12.9 % (0.0-12.0); Neutrophils % (auto) 57.4 % (37.0-80.0); Nucleated Red Blood Cells % 0.1 %; Platelet Count (auto) 128 10^3/uL (140-450); Red Blood Cells 4.73 10^6/uL (4.5-5.90); Red Cell Distribution Width 14.4 % (11.8-14.3); White Blood Cell 10.4 10^3/uL (4.4-10.8)
[2020-08-11 06:20] LABS: Potassium 3.6 mmol/L (3.5-5.1)
[2020-08-11 06:29] LABS: BUN/Creatinine Ratio 22.6; Calcium 8.3 mg/dL (8.5-10.1); Magnesium 2.4 mg/dL (1.6-2.6)
[2020-08-11] MEDS: InsuLIN REG 1unit/0.01ml Soln (100units/ml) SC SCH ×4 (07:00→22:22)
[2020-08-11] MEDS: ACCU-CHEK COMFORT CURVE STRIP VI SCH ×4 (07:23→22:21)
[2020-08-11 08:00] VITALS: BP 115/70
[2020-08-11] MEDS: ASPirin 81 mg TAB PO SCH (10:09)
[2020-08-11] MEDS: FUROSEMIDE 40 MG/4 ML VIAL IV SCH (10:09)
[2020-08-11] MEDS: ATORVASTATIN 20 MG TAB PO SCH (10:10)
[2020-08-11] MEDS: METHADONE HCL 10 MG TAB PO SCH (10:11)
[2020-08-11] MEDS: ENOXAPARIN SOD 40 MG/0.4 ML SYRINGE SC SCH ×2 (10:11→22:21)
[2020-08-11] MEDS: INSULIN LANTUS (GLARGINE) 1 /0.01ml (100units/ml) SC SCH ×2 (10:23→22:21)
[2020-08-11 16:00] VITALS: BP 115/70
[2020-08-11] MEDS ORDERED: IOHEXOL 350 MG/ML 100ML IJ ONE (16:13)
[2020-08-12] VITALS: BP 103/66
[2020-08-12] MEDS: InsuLIN REG 1unit/0.01ml Soln (100units/ml) SC SCH ×4 (07:00→22:41)
[2020-08-12] MEDS: ACCU-CHEK COMFORT CURVE STRIP VI SCH ×4 (07:33→22:45)
[2020-08-12 08:00] VITALS: BP 121/86
[2020-08-12] MEDS: FUROSEMIDE 40 MG/4 ML VIAL IV SCH (09:40)
[2020-08-12] MEDS: ASPirin 81 mg TAB PO SCH (09:40)
[2020-08-12] MEDS: ATORVASTATIN 20 MG TAB PO SCH (09:41)
[2020-08-12] MEDS: ENOXAPARIN SOD 40 MG/0.4 ML SYRINGE SC SCH ×2 (09:41→22:39)
[2020-08-12] MEDS: METHADONE HCL 10 MG TAB PO SCH (09:41)
[2020-08-12] MEDS: INSULIN LANTUS (GLARGINE) 1 /0.01ml (100units/ml) SC SCH ×2 (09:50→22:40)
[2020-08-12 16:00] VITALS: BP 105/74
[2020-08-13] VITALS: BP 116/69
[2020-08-13] MEDS: InsuLIN REG 1unit/0.01ml Soln (100units/ml) SC SCH ×4 (06:38→22:24)
[2020-08-13] MEDS: ACCU-CHEK COMFORT CURVE STRIP VI SCH ×4 (06:38→22:14)
[2020-08-13 08:00] VITALS: BP 122/77
[2020-08-13] MEDS: METHADONE HCL 10 MG TAB PO SCH (10:39)
[2020-08-13] MEDS: ASPirin 81 mg TAB PO SCH (10:39)
[2020-08-13] MEDS: ATORVASTATIN 20 MG TAB PO SCH (10:40)
[2020-08-13] MEDS: ENOXAPARIN SOD 40 MG/0.4 ML SYRINGE SC SCH ×2 (10:40→22:14)
[2020-08-13] MEDS: FUROSEMIDE 40 MG/4 ML VIAL IV SCH (10:40)
[2020-08-13] MEDS: INSULIN LANTUS (GLARGINE) 1 /0.01ml (100units/ml) SC SCH ×2 (10:48→22:24)
[2020-08-13 14:29] LABS: BUN/Creatinine Ratio 15.6; Calcium 8.3 mg/dL (8.5-10.1); Potassium 3.6 mmol/L (3.5-5.1)
[2020-08-13 15:47] VITALS: BP 136/86
[2020-08-14] VITALS: BP 120/61
[2020-08-14 06:00] LABS: Basophils # (auto) 0.1 10 ^3/uL (0-0.2); Basophils % (auto) 1.3 % (0.0-2.0); Eosinophils # (auto) 0.9 10 ^3/uL (0-0.8); Eosinophils % (auto) 9.5 % (0.0-7.0); Hematocrit 36.8 % (41.0-53.0); Hemoglobin 12.8 g/dL (13.5-17.5); Lymphocytes # (auto) 2.2 10 ^3/uL (0.4-5.4); Lymphocytes % (auto) 22.8 % (10.0-50.0); Mean Corpuscular Hemoglobin 28.9 pg (28.0-32.0); Mean Corpuscular Hgb Conc. 34.8 g/dL (32.0-36.0); Mean Corpuscular Volume 83.1 fL (80.0-100.0); Monocytes # (auto) 1.2 10 ^3/uL (0-1.3); Monocytes % (auto) 12.2 % (0.0-12.0); Neutrophils # (auto) 5.2 10 ^3/uL (1.6-8.6); Neutrophils % (auto) 54.2 % (37.0-80.0); Platelet Count (auto) 125 10^3/uL (140-450); Red Blood Cells 4.43 10^6/uL (4.5-5.90); Red Cell Distribution Width 14.2 % (11.8-14.3); White Blood Cell 9.6 10^3/uL (4.4-10.8)
[2020-08-14 06:19] LABS: Calcium 8.5 mg/dL (8.5-10.1); Potassium 3.6 mmol/L (3.5-5.1)
[2020-08-14] MEDS: ACCU-CHEK COMFORT CURVE STRIP VI SCH ×4 (06:19→21:34)
[2020-08-14] MEDS: InsuLIN REG 1unit/0.01ml Soln (100units/ml) SC SCH ×4 (06:19→21:40)
[2020-08-14 06:20] LABS: BUN/Creatinine Ratio 17.2; Magnesium 2.3 mg/dL (1.6-2.6)
[2020-08-14 08:00] VITALS: BP 117/77
[2020-08-14] MEDS: ASPirin 81 mg TAB PO SCH (10:39)
[2020-08-14] MEDS: FUROSEMIDE 40 MG/4 ML VIAL IV SCH (10:39)
[2020-08-14] MEDS: ATORVASTATIN 20 MG TAB PO SCH (10:40)
[2020-08-14] MEDS: ENOXAPARIN SOD 40 MG/0.4 ML SYRINGE SC SCH ×2 (10:40→21:40)
[2020-08-14] MEDS: METHADONE HCL 10 MG TAB PO SCH (10:40)
[2020-08-14] MEDS: INSULIN LANTUS (GLARGINE) 1 /0.01ml (100units/ml) SC SCH ×2 (10:56→21:40)
[2020-08-14 16:00] VITALS: BP 107/73
[2020-08-15] VITALS: BP 110/76
[2020-08-15] MEDS: InsuLIN REG 1unit/0.01ml Soln (100units/ml) SC SCH ×4 (06:36→22:40)
[2020-08-15] MEDS: ACCU-CHEK COMFORT CURVE STRIP VI SCH ×4 (06:36→22:26)
[2020-08-15 08:00] VITALS: BP 113/71
[2020-08-15] MEDS: FUROSEMIDE 40 MG/4 ML VIAL IV SCH (10:50)
[2020-08-15] MEDS: ASPirin 81 mg TAB PO SCH (10:51)
[2020-08-15] MEDS: METHADONE HCL 10 MG TAB PO SCH (10:51)
[2020-08-15] MEDS: ENOXAPARIN SOD 40 MG/0.4 ML SYRINGE SC SCH ×2 (10:51→22:25)
[2020-08-15] MEDS: ATORVASTATIN 20 MG TAB PO SCH (10:51)
[2020-08-15] MEDS: INSULIN LANTUS (GLARGINE) 1 /0.01ml (100units/ml) SC SCH ×2 (10:53→22:37)
[2020-08-15 16:00] VITALS: BP 100/60
[2020-08-16] VITALS: BP 100/72
[2020-08-16 00:30] VITALS: BP 100/72
[2020-08-16] MEDS: InsuLIN REG 1unit/0.01ml Soln (100units/ml) SC SCH ×4 (06:16→22:14)
[2020-08-16] MEDS: ACCU-CHEK COMFORT CURVE STRIP VI SCH ×4 (06:16→21:48)
[2020-08-16 08:00] VITALS: BP 117/78
[2020-08-16] MEDS: FUROSEMIDE 40 MG/4 ML VIAL IV SCH (08:38)
[2020-08-16] MEDS: ASPirin 81 mg TAB PO SCH (08:38)
[2020-08-16] MEDS: ENOXAPARIN SOD 40 MG/0.4 ML SYRINGE SC SCH ×2 (08:39→21:48)
[2020-08-16] MEDS: METHADONE HCL 10 MG TAB PO SCH (08:39)
[2020-08-16] MEDS: ATORVASTATIN 20 MG TAB PO SCH (08:39)
[2020-08-16] MEDS: INSULIN LANTUS (GLARGINE) 1 /0.01ml (100units/ml) SC SCH ×2 (12:41→22:16)
[2020-08-16 16:05] VITALS: BP 117/82
[2020-08-17] VITALS: BP 126/69
[2020-08-17] MEDS: ACCU-CHEK COMFORT CURVE STRIP VI SCH ×4 (06:27→22:00)
[2020-08-17] MEDS: InsuLIN REG 1unit/0.01ml Soln (100units/ml) SC SCH ×4 (06:28→22:00)
[2020-08-17 06:39] LABS: Basophils # (auto) 0.1 10 ^3/uL (0-0.2); Basophils % (auto) 1.2 % (0.0-2.0); Hematocrit 38.4 % (41.0-53.0); Hemoglobin 13.1 g/dL (13.5-17.5); Lymphocytes # (auto) 2.7 10 ^3/uL (0.4-5.4); Lymphocytes % (auto) 30.1 % (10.0-50.0); Mean Corpuscular Hemoglobin 28.4 pg (28.0-32.0); Mean Corpuscular Volume 83.5 fL (80.0-100.0); Neutrophils # (auto) 3.7 10 ^3/uL (1.6-8.6); Neutrophils % (auto) 40.8 % (37.0-80.0); Platelet Count (auto) 169 10^3/uL (140-450)
[2020-08-17 06:45] LABS: Eosinophils # (auto) 1.1 10 ^3/uL (0-0.8); Eosinophils % (auto) 14.9 % (0.0-7.0); Monocytes # (auto) 1.4 10 ^3/uL (0-1.3)
[2020-08-17 07:00] LABS: Potassium 3.5 mmol/L (3.5-5.1)
[2020-08-17 07:05] LABS: Calcium 8.7 mg/dL (8.5-10.1); Magnesium 2.5 mg/dL (1.6-2.6)
[2020-08-17 08:00] VITALS: BP 142/76
[2020-08-17] MEDS: ATORVASTATIN 20 MG TAB PO SCH (09:06)
[2020-08-17] MEDS: FUROSEMIDE 40 MG/4 ML VIAL IV SCH (09:06)
[2020-08-17] MEDS: METHADONE HCL 10 MG TAB PO SCH (09:06)
[2020-08-17] MEDS: ASPirin 81 mg TAB PO SCH (09:06)
[2020-08-17] MEDS: ENOXAPARIN SOD 40 MG/0.4 ML SYRINGE SC SCH ×2 (09:07→22:00)
[2020-08-17] MEDS: INSULIN LANTUS (GLARGINE) 1 /0.01ml (100units/ml) SC SCH ×2 (10:00→22:00)
[2020-08-17 15:57] VITALS: BP 127/85
[2020-08-18] VITALS: BP 122/77
[2020-08-18 01:19] VITALS: BP 122/77
[2020-08-18] MEDS: ACCU-CHEK COMFORT CURVE STRIP VI SCH ×4 (06:22→22:29)
[2020-08-18] MEDS: InsuLIN REG 1unit/0.01ml Soln (100units/ml) SC SCH ×4 (06:22→22:00)
[2020-08-18 08:00] VITALS: BP 112/75
[2020-08-18] MEDS: ASPirin 81 mg TAB PO SCH (10:26)
[2020-08-18] MEDS: ATORVASTATIN 20 MG TAB PO SCH (10:26)
[2020-08-18] MEDS: FUROSEMIDE 40 MG/4 ML VIAL IV SCH (10:26)
[2020-08-18] MEDS: METHADONE HCL 10 MG TAB PO SCH (10:26)
[2020-08-18] MEDS: ENOXAPARIN SOD 40 MG/0.4 ML SYRINGE SC SCH ×2 (10:28→22:29)
[2020-08-18] MEDS: INSULIN LANTUS (GLARGINE) 1 /0.01ml (100units/ml) SC SCH ×2 (10:28→22:28)
[2020-08-18 16:00] VITALS: BP 126/72
[2020-08-19] VITALS: BP 119/73
[2020-08-19] MEDS: ACCU-CHEK COMFORT CURVE STRIP VI SCH ×4 (06:35→21:35)
[2020-08-19] MEDS: InsuLIN REG 1unit/0.01ml Soln (100units/ml) SC SCH ×4 (06:35→21:31)
[2020-08-19 08:00] VITALS: BP 121/80
[2020-08-19] MEDS: FUROSEMIDE 40 MG/4 ML VIAL IV SCH (09:55)
[2020-08-19] MEDS: ATORVASTATIN 20 MG TAB PO SCH (09:56)
[2020-08-19] MEDS: ASPirin 81 mg TAB PO SCH (09:56)
[2020-08-19] MEDS: METHADONE HCL 10 MG TAB PO SCH (09:57)
[2020-08-19] MEDS: ENOXAPARIN SOD 40 MG/0.4 ML SYRINGE SC SCH ×2 (09:57→21:36)
[2020-08-19] MEDS: INSULIN LANTUS (GLARGINE) 1 /0.01ml (100units/ml) SC SCH ×2 (10:06→21:35)
[2020-08-19 11:23] LABS: Basophils # (auto) 0.1 10 ^3/uL (0-0.2); Basophils % (auto) 1.2 % (0.0-2.0); Eosinophils % (auto) 9.9 % (0.0-7.0); Hematocrit 40.6 % (41.0-53.0); Hemoglobin 13.6 g/dL (13.5-17.5); Lymphocytes % (auto) 19.3 % (10.0-50.0); Mean Corpuscular Hemoglobin 28.1 pg (28.0-32.0); Mean Corpuscular Hgb Conc. 33.5 g/dL (32.0-36.0); Mean Corpuscular Volume 83.8 fL (80.0-100.0); Monocytes # (auto) 0.8 10 ^3/uL (0-1.3); Monocytes % (auto) 8.1 % (0.0-12.0); Neutrophils # (auto) 6.2 10 ^3/uL (1.6-8.6); Neutrophils % (auto) 61.5 % (37.0-80.0); Nucleated Red Blood Cells % 0.1 %; Platelet Count (auto) 198 10^3/uL (140-450); Red Blood Cells 4.85 10^6/uL (4.5-5.90); Red Cell Distribution Width 14.2 % (11.8-14.3); White Blood Cell 10.1 10^3/uL (4.4-10.8)
[2020-08-19 11:27] LABS: BUN/Creatinine Ratio 13.4; Calcium 8.6 mg/dL (8.5-10.1); Potassium 3.4 mmol/L (3.5-5.1)
[2020-08-19 16:00] VITALS: BP 130/86
[2020-08-20] VITALS: BP 102/66
[2020-08-20] MEDS: ACCU-CHEK COMFORT CURVE STRIP VI SCH ×4 (05:38→22:19)
[2020-08-20] MEDS: InsuLIN REG 1unit/0.01ml Soln (100units/ml) SC SCH ×4 (05:39→22:00)
[2020-08-20 08:00] VITALS: BP 122/75
[2020-08-20] MEDS: ENOXAPARIN SOD 40 MG/0.4 ML SYRINGE SC SCH ×2 (10:00→22:18)
[2020-08-20] MEDS: INSULIN LANTUS (GLARGINE) 1 /0.01ml (100units/ml) SC SCH ×2 (10:00→22:18)
[2020-08-20] MEDS: FUROSEMIDE 40 MG/4 ML VIAL IV SCH (10:29)
[2020-08-20] MEDS: ASPirin 81 mg TAB PO SCH (10:30)
[2020-08-20] MEDS: ATORVASTATIN 20 MG TAB PO SCH (10:30)
[2020-08-20] MEDS: METHADONE HCL 10 MG TAB PO SCH (10:30)
[2020-08-20] MEDS ORDERED: POTASSIUM CHL 20 Meq TABLET PO ONE (11:45)
[2020-08-20 15:50] VITALS: BP 124/86
[2020-08-21] VITALS: BP 122/81
[2020-08-21] MEDS: ACCU-CHEK COMFORT CURVE STRIP VI SCH ×4 (06:31→22:00)
[2020-08-21] MEDS: InsuLIN REG 1unit/0.01ml Soln (100units/ml) SC SCH ×4 (06:32→22:00)
[2020-08-21 08:00] VITALS: BP 126/69
[2020-08-21] MEDS: METHADONE HCL 10 MG TAB PO SCH (09:31)
[2020-08-21] MEDS: FUROSEMIDE 40 MG/4 ML VIAL IV SCH (09:31)
[2020-08-21] MEDS: INSULIN LANTUS (GLARGINE) 1 /0.01ml (100units/ml) SC SCH ×2 (10:00→22:00)
[2020-08-21] MEDS: ENOXAPARIN SOD 40 MG/0.4 ML SYRINGE SC SCH (11:49)
[2020-08-21 16:00] VITALS: BP 122/81
[2020-08-22 00:05] VITALS: BP 118/72
[2020-08-22 06:25] LABS: Basophils # (auto) 0.1 10 ^3/uL (0-0.2); Basophils % (auto) 0.8 % (0.0-2.0); Eosinophils # (auto) 1.1 10 ^3/uL (0-0.8); Eosinophils % (auto) 12.8 % (0.0-7.0); Hematocrit 36.6 % (41.0-53.0); Hemoglobin 12.3 g/dL (13.5-17.5); Lymphocytes # (auto) 2.8 10 ^3/uL (0.4-5.4); Lymphocytes % (auto) 31.5 % (10.0-50.0); Mean Corpuscular Hemoglobin 28.1 pg (28.0-32.0); Mean Corpuscular Hgb Conc. 33.6 g/dL (32.0-36.0); Mean Corpuscular Volume 83.7 fL (80.0-100.0); Monocytes # (auto) 1.1 10 ^3/uL (0-1.3); Monocytes % (auto) 12.4 % (0.0-12.0); Neutrophils # (auto) 3.8 10 ^3/uL (1.6-8.6); Neutrophils % (auto) 42.5 % (37.0-80.0); Nucleated Red Blood Cells % 0.1 %; Platelet Count (auto) 236 10^3/uL (140-450); Red Blood Cells 4.37 10^6/uL (4.5-5.90); Red Cell Distribution Width 14.2 % (11.8-14.3)
[2020-08-22 06:47] LABS: Calcium 8.6 mg/dL (8.5-10.1); Potassium 3.7 mmol/L (3.5-5.1)
[2020-08-22 06:50] LABS: BUN/Creatinine Ratio 19.7; Magnesium 2.3 mg/dL (1.6-2.6)
[2020-08-22] MEDS: InsuLIN REG 1unit/0.01ml Soln (100units/ml) SC SCH ×2 (07:00→11:32)
[2020-08-22] MEDS: ACCU-CHEK COMFORT CURVE STRIP VI SCH ×2 (07:38→11:22)
[2020-08-22 08:00] VITALS: BP 109/70
[2020-08-22] MEDS: FUROSEMIDE 40 MG/4 ML VIAL IV SCH (10:24)
[2020-08-22] MEDS: METHADONE HCL 10 MG TAB PO SCH (10:25)
[2020-08-22] MEDS: INSULIN LANTUS (GLARGINE) 1 /0.01ml (100units/ml) SC SCH (11:32)
[2020-08-22 15:17] VITALS: BP 109/70
[2020-08-22 16:00] VITALS: BP 105/65
== END 2020-08-22 17:25 | disposition home or self-care (01) | DRG 137 ==
LOC: ER 09:39 → EDBD 09:39 → TELE 09:40 → TELE-E-ADS 07-22 04:26 → TELE-EAST 08-18 11:23
PROVIDERS: ADMIT Internal Medicine; ATTEND Internal Medicine
PROC: XW033E5 Introduction of Remdesivir Anti-infective into Peripheral Vein, Percutaneous Approach, New Technology Group 5 (ICD-10-PCS; principal; 2020-07-20)
DX: U07.1 COVID-19 (principal); J12.82 Pneumonia due to coronavirus disease 2019; J96.01 Acute respiratory failure with hypoxia; E66.01 Morbid (severe) obesity due to excess calories; E11.65 Type 2 diabetes mellitus with hyperglycemia; E78.5 Hyperlipidemia, unspecified; E87.1 Hypo-osmolality and hyponatremia; E88.09 Other disorders of plasma-protein metabolism, not elsewhere classified; F41.9 Anxiety disorder, unspecified; G89.4 Chronic pain syndrome; R74.01 Elevation of levels of liver transaminase levels; E87.6 Hypokalemia; Z68.33 Body mass index [BMI] 33.0-33.9, adult; F11.20 Opioid dependence, uncomplicated; R77.8 Other specified abnormalities of plasma proteins
CPT/HCPCS: 36415; 36600; 71045; 71275; 80048; 80053; 82728; 82805; 82962; 83036; 83605; 83615; 83735; 83880; 84484; 85007; 85025; 85027; 85379; 85610; 85730; 86141; 87040; 87081; 87426; 93005; 93970; 96361; 96365; 96366; 96375; 99291; G0378; J0696; J1100; J1815